=== PATIENT | female | born 1965 | race Caucasian/White ===

== ENCOUNTER 2019-08-04 00:45 | Emergency (ER) | payer BC ==
[~2019-08-04] VITALS: Ht 157.5 cm; Wt 81.8 kg
--- NOTE | 2019-08-04 01:07 | NUR ---
Patient reports waking up and feeling, "funny" but unable to describe exactly what she felt. She states she took her blood pressure which was, "high. I can't remember what it was" then went back to bed. She woke again and re-checked her blood pressure and states that she had a panick attack which she has had before, "but not this bad." Patient reports that her symptoms have resolved and she feels much better.
[2019-08-04] MEDS ORDERED: LORazepam 1 MG tablet PO ONE (01:50)
[2019-08-04 01:57] VITALS: BP 158/94
== END 2019-08-04 01:58 | disposition home or self-care (01) ==
LOC: ER 00:46
DX: F41.0 Panic disorder [episodic paroxysmal anxiety] (principal); I10 Essential (primary) hypertension; F10.99 Alcohol use, unspecified with unspecified alcohol-induced disorder; Y90.9 Presence of alcohol in blood, level not specified
CPT/HCPCS: 93005; 99284